=== PATIENT | female | born 1975 | race Caucasian/White ===

== ENCOUNTER → 2018-05-15 | Day surgery (SDC) | payer OTHER ==
--- NOTE | 2018-05-15 22:05 | OP ---
DATE OF OPERATION: 05/15/2018 PREOPERATIVE DIAGNOSIS: Right breast mass with right breast thickening. POSTOPERATIVE DIAGNOSIS: Right breast mass with right breast thickening. PROCEDURE: Three-mm skin punch and right ultrasound-guided core biopsy of a clip placement. ANESTHESIA: Local. ATTENDING SURGEON: Tamiko John MD ESTIMATED BLOOD LOSS: Minimal. COMPLICATIONS: None. DESCRIPTION OF PROCEDURE: Patient was made aware of the risks and benefits of the procedure and consented. She was placed in a supine position. Under sterile conditions with 1% lidocaine for local anesthesia, a 3-mm punch was used to biopsy the edematous skin and submitted in formalin. Through this incision, under ultrasound guidance, a 13-gauge suction biopsy device was placed into the mass, and multiple cores were obtained and submitted to Pathology. Likewise, under ultrasound guidance, a U-shaped clip was placed into the biopsy region. Patient tolerated the procedure well. Using Steri-Strips and a sterile bandage, the incision was closed and dressed. We will contact the patient with the results as soon as possible. TAMIKO JOHN M.D. [id number] MTDD
--- NOTE | 2018-05-18 16:26 | PATH ---
Surgical Pathology Report Patient Name: JANET MCGOWAN [facility]. Rec. #: [id number] /Age/Gender: 1975 (Age: 42) / F Account: [id number] Location: Taken: 05/15/2018 Received: 05/15/2018 Reported: 05/18/2018 Physicians: Kandis Gibson M.D. Alvin Chisolm, M.D. Specimen(s) Received A: RIGHT BREAST SKIN PUNCH BIOPSY B: RIGHT BREAST CORE BIOPSY Clinical History Palpable mass Ultrasound findings: Highly suspicious/malignant Final Diagnosis A. Breast, right, skin, punch biopsy: Skin and underlying subcutaneous tissue WITH mild vascular congestion, AND MILD superficial dermis and perivascular LYMPHOPLASMACYTIC INFILTRATE. No carcinoma identified. B. Breast, right, 1-2:00, 3-4 CMFN, core biopsy: Invasive ductal carcinoma, poorly differentiated, measuring AT LEAST 1.2 cm in this material. Comment: Part A, deeper levels have been examined. Part B, Immunohistochemical stain performed and interpreted at [facility] shows the tumor is positive for E-Cadherin, supportive of ductal phenotype. Results of Her2 (IHC) & Ki-67 studies are pending and will be reported separately. Results of Estrogen Receptor (ER) and Progesterone Receptor (ND) studies performed on block "B" at [facility] are as follows: ER (clone [id number] mouse monoclonal antibody by [employer]): >90% nuclear staining with moderate to strong intensity (Positive). ND (clone16 mouse monoclonal antibody by [employer]): <1% nuclear staining with weak intensity (Negative). Positive and negative controls (internal if applicable) show appropriate results. Formalin fixation and cold ischemic times are within current ASCO/CAP recommendations for ER, ND and Her2 testing Electronically Signed Gayle Mcclelland M.D. Addendum Reported: 05/19/2018 Addendum Diagnosis Results of Her2 (IHC) & Ki-67 studies performed on block "B" at [place], [place] ([id number]) are as follows: Her2 IHC (EP3 from [employer], formerly known as [id number], using Torres Polymer Refine detection kit): 2+ (Equivocal). Ki-67: ~40% (High proliferative index). Her2 by FISH pending and will be reported separately. Positive and negative controls (internal if applicable) show appropriate results. Gayle Mcclelland M.D. Gross Description A. Received in formalin labeled "right breast skin punch biopsy," is a 0.3 cm in diameter rosales, circular skin punch biopsy excised to a depth of 1.0 cm. The epidermal surface is grossly unremarkable. The specimen is submitted in toto in one cassette. B. Received in formalin labeled "right breast biopsy 1-2:00, 3-4 cmfn," is a 1.8 x 1.4 x 0.2 cm aggregate of multiple rosales, irregular to cylindrical portions of fibroadipose tissue admixed with blood clot. The formalin is filtered and the specimen is entirely submitted in one cassette. Time to formalin fixation: Less than one minute Total formalin fixation time: Approximately 7 hours. 05/15/2018 [facility]05/15/2018
== END | disposition home or self-care (01) ==
LOC: FRADUS-SUR 09:41
PROVIDERS: ATTEND Surgery Surgical Oncology
PROC: 0HBT3ZX Excision of Right Breast, Percutaneous Approach, Diagnostic (ICD-10-PCS; principal; 2018-05-15)
PROC: [UNRECOGNIZED PROCEDURE] (2018-05-15)
DX: C50.211 Malignant neoplasm of upper-inner quadrant of right female breast (principal); Z17.0 Estrogen receptor positive status [ER+]; L98.6 Other infiltrative disorders of the skin and subcutaneous tissue; N63.12 Unspecified lump in the right breast, upper inner quadrant
CPT/HCPCS: 19083; 76942-TC; 87899; 88305-TC; 88342-TC; A4648